=== PATIENT | female | born 1935 | race Caucasian/White ===

== ENCOUNTER 2020-02-21 20:11 | Emergency (ER) | payer OTHER, BC ==
[~2020-02-21] VITALS: Ht 154.9 cm; Wt 50.8 kg
--- NOTE | 2020-02-21 20:25 | NUR ---
PT AMBULATED TO BED #9
--- NOTE | 2020-02-21 20:30 | NUR ---
84 year old female biba for c/o cough x 1 month. came from urgent care and was told to get an xray. at time of assessment, no cough present. states feeling of congestion and pleghm forming up. respirations even and unlbaored. cbl sounds. abdomen soft and nontender. normoactive bowel sounds. connected to cardiac monitoring and pulse oximetry monitoring. awaiting MSE. pmhx: hld, htn, dm, arthritis. nka
[2020-02-21 20:32] VITALS: BP 196/72
--- NOTE | 2020-02-21 21:10 | NUR ---
xray at bedside.
[2020-02-21 22:03] VITALS: BP 209/79
--- NOTE | 2020-02-21 22:09 | NUR ---
BP 209/79. Dr. Templeton made aware
== END 2020-02-21 22:39 | disposition home or self-care (01) ==
LOC: MED 20:11
DX: R09.81 Nasal congestion (principal); E11.9 Type 2 diabetes mellitus without complications; E78.5 Hyperlipidemia, unspecified; I10 Essential (primary) hypertension; Z02.89 Encounter for other administrative examinations
CPT/HCPCS: 71045; 99283; Q0092